=== PATIENT | male | born 1950 | race Caucasian/White ===

== ENCOUNTER 2016-04-29 10:40 | Observation (INO) | payer MEDICARE, OTHER ==
[~2016-04-29] VITALS: Ht 177.8 cm; Wt 79.5 kg
[2016-04-29] VITALS (12 sets, daily range): BP systolic 152–176; BP diastolic 96–102; PULSE 57–71; RESP 18–20; TEMP 97.4–98.4; O2SAT 98–99
[2016-04-29] MEDS ORDERED: ACETYLCYSTEINE 20% ORAL SOLN 4 ML VIAL PO SCH ×2 (12:00→13:00)
[2016-04-29 12:35] LABS: HEMATOCRIT 35.4 % (39.0-51.0); MEAN CELL VOLUME 86.6 FL (80.0-100.0); MEAN CORPUSCULAR HEMOGLOBIN 29.5 PG (27.0-34.0); MEAN CORPUSCULAR HGB CONC 34.1 % (32.0-36.0); PLATELET COUNT 256 TH/MM3 (150-450); RED BLOOD COUNT 4.09 MIL/MM3 (4.50-5.90); RED CELL DISTRIBUTION WIDTH 16.5 % (11.6-17.2); REVIEW FLAG FINAL; WHITE BLOOD COUNT 8.9 TH/MM3 (4.0-11.0)
[2016-04-29 12:43] LABS: INTERNATIONAL NORMALIZED RATIO 1.3 RATIO
[2016-04-29 13:03] LABS: BICARBONATE 22.8 MEQ/L (21.0-32.0); POTASSIUM 4.5 MEQ/L (3.5-5.1)
[2016-04-29] MEDS ORDERED: CHOL1CHW5 PO (13:49)
[2016-04-29] MEDS ORDERED: [UNRECOGNIZED DRUG - OTHER] (13:49)
[2016-04-29] MEDS ORDERED: CITA40TA4 PO (13:49)
[2016-04-29] MEDS ORDERED: CARV25TA PO (13:49)
[2016-04-29] MEDS ORDERED: CLON0.3T PO (13:49)
[2016-04-29] MEDS ORDERED: BUPR150T3 PO (13:49)
[2016-04-29] MEDS ORDERED: ZETI10TA5 PO (13:49)
[2016-04-29] MEDS ORDERED: OMEP20TA PO (13:49)
[2016-04-29] MEDS ORDERED: ATOR1TAB18 PO (13:49)
[2016-04-29] MEDS ORDERED: ISOS60TA PO (13:49)
[2016-04-29] MEDS: ACETYLCYSTEINE 20% 6,000 MG/30 ML ORAL SOLN VIAL PO SCH ×2 (13:58→23:11)
[2016-04-29] MEDS ORDERED: cloNIDine HCL 0.2 MG TAB PO ONE (15:55)
--- NOTE | 2016-04-29 16:23 | HHI.HP ---
History of Present Illness Chief Complaint: Pt admitted for IV hydration prior to surgical intervention History of Present Illness Pt is a pleasant 65/M patient c/o a enlarging AAA after EVAR. The patient has a hx of an endovascular exclusion on the abdominal aortic aneurysm 3-4 years ago. He was lost to follow-up by his own admission with concerns of other health issues, most notably renal failure. He reported his baseline creatinine is in the threes. He was dialyzed once after a small amount of IV contrast during an attempt of an IVC filter removal. The patient denies back pain or abdominal pain. He notes that he had his aneurysm repaired several years ago on an elective basis. (Myriam Kenyon) Past/Family/Social History Past Medical History AAA Cancer- Bladder CKD DM Hyperlipidemia HTN Past Surgical History Back Surgery Coronary Angioplasty with stent placement Social History Current smoker 1/2 pack a day denies ETOH (Myriam Kenyon) Home Medications Reported Medications Cholecalciferol (Vitamin D3)2,000 Unit Chew2,000 Units PO DAILY #1 BOTTLE 04/29/16 [glucoburn] No Conflict Check Bid 04/29/16 Ezetimibe (Zetia)10 Mg Tab10 Mg PO DAILY Ref 0 04/29/16 Omeprazole 20 Mg Tab20 Mg PO BID Ref 0 04/29/16 Isosorbide Mononitrate ER 60 Mg Tab60 Mg PO DAILY Ref 0 04/29/16 Citalopram 40 Mg Tab40 Mg PO DAILY Ref 0 04/29/16 Clonidine 0.3 Mg Tab0.3 Mg PO TID Ref 0 04/29/16 Carvedilol 25 Mg Tab25 Mg PO BID Ref 0 04/29/16 Atorvastatin 80 Mg Tab80 Mg PO HS Ref 0 04/29/16 Bupropion HCl ER 24 HR 150 Mg [id number] Mg PO DAILY Ref 0 04/29/16 Coded Allergies: No Known Allergies (Unverified , 04/29/16) Physical Exam Vitals/I&O Date Time Temp Pulse Resp B/P Pulse Ox O2 Delivery O2 Flow Rate FiO2 04/29/16 15:00 69 04/29/16 15:00 98.4 70 20 176/102 98 04/29/16 14:00 63 04/29/16 13:00 62 04/29/16 12:35 97.4 57 20 173/96 99 04/29/16 12:35 65 Neuro: CN 2-12 intact Heart: +S1,S2 RRR Lungs: Lung sounds clear bilat by auscultation Abdomen: soft and non tender Vascular: Pulses palpable throughout Femoral pulses palpable but diminished All extremities warm with motor intact (Myriam Kenyon) Laboratory Tests Test 04/29/16 04/29/16 12:22 12:25 White Blood Count 8.9 Red Blood Count 4.09 Hemoglobin 12.1 Hematocrit 35.4 Mean Corpuscular Volume 86.6 Mean Corpuscular Hemoglobin 29.5 Mean Corpuscular Hemoglobin 34.1 Concent Red Cell Distribution Width 16.5 Platelet Count 256 Mean Platelet Volume 8.4 Prothrombin Time 15.0 Prothromb Time International 1.3 Ratio Sodium Level 135 Potassium Level 4.5 Chloride Level 103 Carbon Dioxide Level 22.8 Anion Gap 9 Blood Urea Nitrogen 37 Creatinine 3.28 Estimat Glomerular Filtration 19 Rate Random Glucose 152 Calcium Level 8.7 Blood Type B NEGATIVE Antibody Screen NEGATIVE Blood Bank Comment (Myriam Kenyon) Assessment and Plan Assessment: (1) AAA (abdominal aortic aneurysm) Status: Chronic Plan Plan: Pt to have IV hydration prior to surgical vascular intervention tomorrow AM Pt is scheduled to have an EVAR tomorrow am (Myriam Kenyon) Plan Agree with above note. EVAR with enlarging sac but unable to determine endoleak because of CRI. Admitted for hydration and angiogram tomorrow with possible EVAR revision. Pt understands risks, including worsening renal dysfunction. To OR tomorrow. (Kwesi Augustine MD) Problem Qualifiers (1) AAA (abdominal aortic aneurysm): Qualified Code: I71.4 - Abdominal aortic aneurysm (AAA) without rupture Myriam Kenyon Apr 29, 2016 16:23 Kwesi Augustine MD Apr 29, 2016 18:23
[2016-04-29] MEDS: cloNIDine HCL 0.3 MG TAB PO SCH (18:01)
--- NOTE | 2016-04-29 18:25 | PD.VS.PN ---
Pre-operative Note Pre-operative diagnosis: Enlarging AAA after EVAR, CRI Planned procedure: EVAR revision Interval History: Pt has been feeling well since seen in clinic. No abdominal or back pain. Admitted today for IV hydration given eGFR 19. Labs: Laboratory Results Test 04/29/16 12:22 White Blood Count 8.9 TH/MM3 (4.0-11.0) Red Blood Count 4.09 MIL/MM3 (4.50-5.90) Hemoglobin 12.1 GM/DL (13.0-17.0) Hematocrit 35.4 % (39.0-51.0) Mean Corpuscular Volume 86.6 FL (80.0-100.0) Mean Corpuscular Hemoglobin 29.5 PG (27.0-34.0) Mean Corpuscular Hemoglobin 34.1 % Concent (32.0-36.0) Red Cell Distribution Width 16.5 % (11.6-17.2) Platelet Count 256 TH/MM3 (150-450) Mean Platelet Volume 8.4 FL (7.0-11.0) Prothromb Time International 1.3 RATIO Ratio Sodium Level 135 MEQ/L (136-145) Potassium Level 4.5 MEQ/L (3.5-5.1) Chloride Level 103 MEQ/L (98-107) Carbon Dioxide Level 22.8 MEQ/L (21.0-32.0) Anion Gap 9 MEQ/L (5-15) Blood Urea Nitrogen 37 MG/DL (7-18) Random Glucose 152 MG/DL (74-106) Calcium Level 8.7 MG/DL (8.5-10.1) Blood: T&S Imaging: no additional imaging needed Orders: NPO after JENNIFER CARNES (NKDA) Post-operative destination: PACU Operative site marked: No (bilateral groin access - not required) Consent: Informed consent has been obtained from Frank Thompson Jr. I have explained the procedure in detail and discussed the risks, benefits, and potential complications. All questions have been answered. Kwesi Augustine MD Apr 29, 2016 18:25
[2016-04-29] MEDS: CARVEDILOL 12.5 MG TAB PO SCH (21:48)
[2016-04-29] MEDS: PANTOPRAZOLE SOD 20 MG DELAYED RELEASE TAB PO SCH (21:48)
[2016-04-29] MEDS: ATORVASTATIN 80 MG TAB PO SCH (21:48)
[2016-04-30] VITALS (30 sets, daily range): BP systolic 101–187; BP diastolic 56–99; PULSE 56–77; RESP 14–50; TEMP 97.7–99; O2SAT 95–98
[2016-04-30] MEDS ORDERED: SODIUM BICARBONATE 8.4% INJ 100 MEQ in DEXTROSE 5% IN WATE 1000ML INJ 1,000 ML IV SCH ×2 (00:01)
[2016-04-30] MEDS ORDERED: hydrALAZINE HCL 20 MG/ML VIAL IVP PRN (01:30)
[2016-04-30] MEDS: ISOSORBIDE MONONITRATE 60 MG TAB PO SCH (05:16)
[2016-04-30] MEDS ORDERED: MIDAZOLAM HCL 2 MG/2 ML VIAL ONE (06:49)
[2016-04-30] MEDS ORDERED: DEXAMETHASONE SOD PHOS 4 MG/ML VIAL ONE (06:49)
[2016-04-30] MEDS ORDERED: HEPARIN SODIUM - IV 10,000 UNITS/10 ML VIAL ONE (08:07)
[2016-04-30] MEDS ORDERED: ceFAZolin 2 GM PREMIX 50 ML ONE (08:08)
[2016-04-30] MEDS ORDERED: HEPARIN SODIUM - SQ 10,000 UNITS/ML VIAL ONE (08:08)
--- NOTE | 2016-04-30 08:43 | HHI.PR ---
Immediate Post Op Note Procedure Date: Apr 30, 2016 Pre Op Diagnosis: Enlarging AAA after EVAR Post Op Diagnosis: Type II endoleak Surgeon: Kwesi Augustine Healthcare Translator(s): none Procedure: Aortogram w/ B CAN DRYER access IVUS Findings: No Ia or Ib endoleak Possible type II endoleak off iliolumbars Additional Information: R groin closed with Perclose L groin closed with Angioseal Complications: none apparent; Specimen(s) removed: none Estimated blood loss: 10 mL Anesthesia: General Drains: None Fluids: 200mL IVF Patient to: PACU Patient Condition: Good Kwesi Augustine MD Apr 30, 2016 08:43
[2016-04-30] MEDS: HEPARIN SODIUM - SQ 10,000 UNITS/ML VIAL SQ SCH ×3 (09:00→20:52)
[2016-04-30] MEDS ORDERED: DO NOT ADM ANY ANTICOAGULANT DRUGS XX PRN (09:00)
[2016-04-30] MEDS ORDERED: *morphine SULFATE 8 MG/ML PERIprocedure ONLY ONE (09:06)
[2016-04-30] MEDS ORDERED: fentaNYL CITRATE 250 MCG/5 ML AMP ONE (09:14)
--- NOTE | 2016-04-30 09:15 | EKG ---
Date Performed: 04/30/2016 Time Performed: 06:57:00 PTAGE: 65 years EKG: SINUS BRADYCARDIA PROBABLE LATERAL MYOCARDIAL INFARCTION , OF INDETERMINATE AGE INFERIOR MY OCARDIAL INFARCTION , OF INDETERMINATE AGE ABNORMAL ECG NO PREVIOUS TRACING DOCTOR: Chino Nielson Interpretating Date/Time 04/30/2016 09:14:29
[2016-04-30] MEDS ORDERED: *ONDANSETRON 4 MG VIAL PERIprocedural Use ONLY ONE (09:32)
[2016-04-30] MEDS: ACETYLCYSTEINE 20% 6,000 MG/30 ML ORAL SOLN VIAL PO SCH ×2 (10:30→20:51)
[2016-04-30] MEDS: EZETIMIBE 10 MG TAB PO SCH (10:33)
[2016-04-30] MEDS: PANTOPRAZOLE SOD 20 MG DELAYED RELEASE TAB PO SCH ×2 (10:33→20:51)
[2016-04-30] MEDS: CHOLECALCIFEROL (VIT D3) 1000 UNIT TAB PO SCH (10:34)
[2016-04-30] MEDS: buPROPion HCL 150 MG SUSTAINED RELEASE TAB PO SCH (10:34)
[2016-04-30] MEDS: CARVEDILOL 12.5 MG TAB PO SCH ×2 (10:34→20:52)
[2016-04-30] MEDS: cloNIDine HCL 0.3 MG TAB PO SCH ×3 (10:34→18:01)
[2016-04-30] MEDS: CITALOPRAM HYDROBROMIDE 40 MG TAB PO SCH (10:34)
[2016-04-30] MEDS ORDERED: NEOSTIGMINE 3 MG/3 ML SYR IV ONE (12:00)
[2016-04-30] MEDS ORDERED: ePHEDrine/NS 25 MG/5 ML SYR IV ONE (12:00)
[2016-04-30] MEDS ORDERED: SODIUM CHLORID 0.9% 500 ML INJ 500 ML IV ONE (12:00)
[2016-04-30] MEDS ORDERED: IOHEXOL 300 MG/ML 100 ML BTL (for Rad CT) IV ONE (12:00)
[2016-04-30] MEDS ORDERED: NORMOSOL R INJ 1,000 ML IV ONE (12:00)
[2016-04-30] MEDS ORDERED: IOHEXOL 300 MG/ML 50 ML BTL (for RAD DIAG) IV ONE (12:00)
[2016-04-30] MEDS ORDERED: PROPOFOL 200 MG/20 ML AMP IV ONE (12:00)
[2016-04-30] MEDS: SODIUM BICARBONATE 8.4% INJ 100 MEQ in DEXTROSE 5% IN WATE 1000ML INJ 1,000 ML IV SCH ×2 (20:50)
[2016-04-30] MEDS: ATORVASTATIN 80 MG TAB PO SCH (20:52)
[2016-05-01] VITALS (10 sets, daily range): BP systolic 147–149; BP diastolic 88–93; PULSE 64–75; RESP 16–18; TEMP 98–98.5; O2SAT 95–96
[2016-05-01 05:44] LABS: BICARBONATE 23.6 MEQ/L (21.0-32.0); POTASSIUM 4.2 MEQ/L (3.5-5.1)
[2016-05-01] MEDS: ISOSORBIDE MONONITRATE 60 MG TAB PO SCH (06:00)
[2016-05-01] MEDS: PANTOPRAZOLE SOD 20 MG DELAYED RELEASE TAB PO SCH (08:34)
[2016-05-01] MEDS: buPROPion HCL 150 MG SUSTAINED RELEASE TAB PO SCH (08:34)
[2016-05-01] MEDS: CHOLECALCIFEROL (VIT D3) 1000 UNIT TAB PO SCH (08:34)
[2016-05-01] MEDS: cloNIDine HCL 0.3 MG TAB PO SCH (08:34)
[2016-05-01] MEDS: HEPARIN SODIUM - SQ 10,000 UNITS/ML VIAL SQ SCH (08:34)
[2016-05-01] MEDS: CARVEDILOL 12.5 MG TAB PO SCH (08:34)
[2016-05-01] MEDS: CITALOPRAM HYDROBROMIDE 40 MG TAB PO SCH (08:34)
[2016-05-01] MEDS: EZETIMIBE 10 MG TAB PO SCH (08:34)
[2016-05-01] MEDS: SODIUM BICARBONATE 8.4% INJ 100 MEQ in DEXTROSE 5% IN WATE 1000ML INJ 1,000 ML IV SCH ×2 (08:35)
[2016-05-01] MEDS: ACETYLCYSTEINE 20% 6,000 MG/30 ML ORAL SOLN VIAL PO SCH (08:35)
--- NOTE | 2016-05-01 10:05 | PD.VS.PN ---
Subjective POD #: 1 Procedure(s): angiogram, IVUS Subjective/Hospital Course No problems overnight; feels well; groins ok Objective Vitals/I&O Date Time Temp Pulse Resp B/P Pulse Ox O2 Delivery O2 Flow Rate FiO2 05/01/16 10:01 96 21 05/01/16 08:00 64 05/01/16 08:00 98.2 67 16 149/88 96 05/01/16 06:29 65 05/01/16 05:22 75 05/01/16 04:00 66 05/01/16 03:00 98.0 65 18 147/93 95 05/01/16 03:00 66 05/01/16 02:26 65 05/01/16 02:26 98.5 69 18 147/93 96 05/01/16 02:00 66 05/01/16 01:00 68 05/01/16 00:00 74 04/30/16 23:00 72 04/30/16 22:00 68 04/30/16 21:00 68 04/30/16 20:00 70 04/30/16 19:00 98.6 66 16 169/95 96 04/30/16 19:00 70 04/30/16 18:00 64 04/30/16 17:00 72 04/30/16 17:00 67 20 158/91 97 04/30/16 16:00 72 04/30/16 15:00 73 04/30/16 15:00 99.0 68 50 101/74 95 04/30/16 14:30 77 20 102/56 96 04/30/16 14:00 72 04/30/16 13:00 72 04/30/16 12:35 74 04/30/16 12:34 74 04/30/16 12:28 75 16 111/71 97 04/30/16 12:00 74 04/30/16 11:08 98 Nasal Cannula 2.00 04/30/16 11:00 73 05/01/16 05/01/16 05/01/16 07:00 15:00 23:00 Intake Total 1316 ml Output Total 1300 ml Balance 16 ml Exam: no groin ecchymoses Pulses: palpable femoral pulses Laboratory Laboratory Tests Test 05/01/16 04:35 Sodium Level 133 Potassium Level 4.2 Chloride Level 97 Carbon Dioxide Level 23.6 Anion Gap 12 Blood Urea Nitrogen 42 Creatinine 3.45 Estimat Glomerular Filtration 18 Rate Random Glucose 218 Calcium Level 8.7 Assessment and Plan Assessment: (1) AAA (abdominal aortic aneurysm) Status: Chronic Plan Potential type II endoleak but no type Ia or Ib. Creatinine stable. D/C today with f/u 3m with NC CT A/P Pt understands results of imaging yesterday and agrees with plan Discharge Planning today Problem Qualifiers (1) AAA (abdominal aortic aneurysm): Qualified Code: I71.4 - Abdominal aortic aneurysm (AAA) without rupture Kwesi Augustine MD May 01, 2016 10:05
--- NOTE | 2016-05-01 10:10 | PD.VS.DC ---
Discharge Summary Admission Date: Apr 29, 2016 at 11:02 Discharge Date: May 01, 2016 Admission Diagnosis: (1) Enlarging abdominal aortic aneurysm (AAA) Discharge Diagnosis: (1) AAA (abdominal aortic aneurysm) Status: Chronic Brief History from admission Pt is a lane 65/M patient c/o a enlarging AAA after EVAR. The patient has a hx of an endovascular exclusion on the abdominal aortic aneurysm 3-4 years ago. He was lost to follow-up by his own admission with concerns of other health issues, most notably renal failure. He reported his baseline creatinine is in the threes. He was dialyzed once after a small amount of IV contrast during an attempt of an IVC filter removal. The patient denies back pain or abdominal pain. He notes that he had his aneurysm repaired several years ago on an elective basis. Procedure(s): Aortogram w/ B STOCK BUYER access Significant Findings GENERAL: Lane Delarosa/Kindra who is A&OX4 and in NAD, Affect is appropriate to situation SKIN: Warm and dry. Bilat small incisions noted to groin regions intact with surgical glue. NO redness, drainage or swelling CARDIOVASCULAR: RRR GASTROINTESTINAL: Abdomen soft, non-tender, nondistended. MUSCULOSKELETAL: No cyanosis, or edema. Laboratory Tests Test 04/29/16 05/01/16 12:22 04:35 Red Blood Count 4.09 MIL/MM3 (4.50-5.90) Hemoglobin 12.1 GM/DL (13.0-17.0) Hematocrit 35.4 % (39.0-51.0) Prothrombin Time 15.0 SEC (9.8-11.6) Sodium Level 135 MEQ/L 133 MEQ/L (136-145) (136-145) Blood Urea Nitrogen 37 MG/DL (7-18) 42 MG/DL (7-18) Creatinine 3.28 MG/DL 3.45 MG/DL (0.60-1.30) (0.60-1.30) Estimat Glomerular Filtration 19 ML/MIN (>89) 18 ML/MIN (>89) Rate Random Glucose 152 MG/DL 218 MG/DL (74-106) (74-106) Chloride Level 97 MEQ/L (98-107) Hospital Course: Pt was admitted for hydration prior to angiogram the following day Pt has done well and is cleared for d/c'd Will continue to follow patient in our OPC Pt will RTC on 08/01/16 or earlier if any questions or concerns develop Allergies Coded Allergies Type Severity Reaction Last Updated Verified No Known Allergies 04/29/16 No ///// 06:00 18:00 06:00 18:00 06:00 18:00 Intake Total 720 ml 869 ml 2166 ml 1316 ml Output Total 650 ml 1200 ml 380 ml 1300 ml Balance 70 ml -331 ml 1786 ml 16 ml Intake Oral 720 ml 480 ml 520 ml 800 ml IV Total 389 ml 546 ml 516 ml Other 1100 ml Output Urine Total 650 ml 1200 ml 375 ml 1300 ml Estimated Blood Loss 5 ml # Bowel Movements 0 0 0 Laboratory Tests Test 04/29/16 04/29/16 05/01/16 12:22 12:25 04:35 White Blood Count 8.9 TH/MM3 Red Blood Count 4.09 MIL/MM3 Hemoglobin 12.1 GM/DL Hematocrit 35.4 % Mean Corpuscular Volume 86.6 FL Mean Corpuscular Hemoglobin 29.5 PG Mean Corpuscular Hemoglobin 34.1 % Concent Red Cell Distribution Width 16.5 % Platelet Count 256 TH/MM3 Mean Platelet Volume 8.4 FL Prothrombin Time 15.0 SEC Prothromb Time International 1.3 RATIO Ratio Sodium Level 135 MEQ/L 133 MEQ/L Potassium Level 4.5 MEQ/L 4.2 MEQ/L Chloride Level 103 MEQ/L 97 MEQ/L Carbon Dioxide Level 22.8 MEQ/L 23.6 MEQ/L Anion Gap 9 MEQ/L 12 MEQ/L Blood Urea Nitrogen 37 MG/DL 42 MG/DL Creatinine 3.28 MG/DL 3.45 MG/DL Estimat Glomerular Filtration 19 ML/MIN 18 ML/MIN Rate Random Glucose 152 MG/DL 218 MG/DL Calcium Level 8.7 MG/DL 8.7 MG/DL Blood Type B NEGATIVE Antibody Screen NEGATIVE Blood Bank Comment Procedure Category Date Status Time Vital Signs (Adult) NAKITA 04/29/16 Complete 11:42 Activity Oob Ad Linda NAKITA 04/29/16 In Process 11:42 Basic Metabolic Panel LAB 04/29/16 Complete (Bmp) 11:42 Cbc No Diff, Includes LAB 04/29/16 Complete Plts 11:42 Prothrombin Time / LAB 04/29/16 Complete Inr (Pt) 11:46 Type And Screen BBK 04/29/16 Complete 11:46 Acetylcysteine 20% MED 04/29/16 Complete Liq (Mucomyst 20% Liq 12:00 Dextrose 5% In MED 04/30/16 In Process Wate... W/Sodium 00:01 Place In Observation ADMITTING 04/29/16 Transmitted Diet Heart Healthy DIET 04/29/16 Complete Lunch Acetylcysteine 20% MED 04/29/16 In Process Liq (Mucomyst 20% Liq 14:00 Atorvastatin (Lipitor) MED 04/29/16 In Process 21:00 Carvedilol (Coreg) MED 04/29/16 In Process 21:00 Citalopram (Celexa) MED 04/30/16 In Process 09:00 Clonidine (Catapres) MED 04/29/16 In Process 18:00 Ezetimibe (Zetia) MED 04/30/16 In Process 09:00 Isosorbide MED 04/30/16 In Process Mononitrate (Imdur) 07:00 Cholecalciferol MED 04/30/16 In Process (Vitamin D3) 09:00 Pantoprazole MED 04/29/16 In Process (Protonix) 21:00 Bupropion Sr MED 04/30/16 In Process (Wellbutrin Sr) 09:00 Clonidine (Catapres) MED 04/29/16 Complete 15:55 Hydralazine Inj MED 04/30/16 In Process (Apresoline Inj) 01:30 Electrocardiogram CAV 04/30/16 Resulted Midazolam Inj (Versed MED 04/30/16 Complete Inj) 06:49 Dexamethasone Inj MED 04/30/16 Complete (Decadron Inj) 06:49 Heparin Inj (Heparin MED 04/30/16 Complete Inj) 08:07 Cefazolin 2 Gm Premix MED 04/30/16 Complete (Ancef 2 Gm Premix 08:08 Heparin Inj (Heparin MED 04/30/16 Complete Inj) 08:08 Activity Bed Rest NAKITA 04/30/16 In Process 08:44 Diet Heart Healthy DIET 04/30/16 Transmitted Breakfast Resp Oxygen Bridger C RSP 04/30/16 Complete Titrat 1-4 L Vital Signs (Adult) [facility] 04/30/16 Complete 08:44 ^ Notify Dr: Other NAKITA 04/30/16 In Process 08:44 Manager Etl / NAKITA 04/30/16 Complete Telemetry 08:44 Basic Metabolic Panel LAB 05/01/16 Complete (Bmp) 06:00 Heparin Inj (Heparin MED 04/30/16 In Process Inj) 09:00 Dextrose 5% In MED 04/30/16 In Process Wate... W/Sodium 10:00 *Morphine Inj MED 04/30/16 Complete (*Morphine Inj 09:06 Fentanyl Inj MED 04/30/16 Complete (Fentanyl Inj) 09:14 *Ondansetron Inj MED 04/30/16 Complete (*Zofran Inj 09:32 Misc Nursing MED 04/30/16 Complete Information 09:00 ^ Anticoagulant Alert NAKITA 04/30/16 In Process ^ Sling NAKITA 04/30/16 In Process Resp Oxygen Bridger C RSP 04/30/16 Logged Titrat 1-[address] In Observation ADMITTING 04/30/16 Transmitted Class [facility] Complete MIN [facility]16 Complete Post Anesthesia [facility] 04/[facility]16 Complete Attending Discharge DISCHARGE 05/01/16 Transmitted Order Vital Signs Date Time Temp Pulse Resp B/P Pulse Ox O2 Delivery O2 Flow Rate FiO2 05/01/16 08:00 64 05/01/16 08:00 98.2 67 16 149/88 96 05/01/16 06:29 65 05/01/16 05:22 75 05/01/16 04:00 66 05/01/16 03:00 98.0 65 18 147/93 95 05/01/16 03:00 66 05/01/16 02:26 65 05/01/16 02:26 98.5 69 18 147/93 96 05/01/16 02:00 66 05/01/16 01:00 68 05/01/16 00:00 74 04/30/16 23:00 72 04/30/16 22:00 68 04/30/16 21:00 68 04/30/16 20:00 70 04/30/16 19:00 98.6 66 16 169/95 96 04/30/16 19:00 70 04/30/16 18:00 64 04/30/16 17:00 72 04/30/16 17:00 67 20 158/91 97 04/30/16 16:00 72 04/30/16 15:00 73 04/30/16 15:00 99.0 68 50 101/74 95 04/30/16 14:30 77 20 102/56 96 04/30/16 14:00 72 04/30/16 13:00 72 04/30/16 12:35 74 04/30/16 12:34 74 04/30/16 12:28 75 16 111/71 97 04/30/16 12:00 74 04/30/16 11:08 98 Nasal Cannula 2.00 04/30/16 11:00 73 04/30/16 10:00 74 04/30/16 09:55 97.7 67 20 136/78 95 Nasal Cannula 2 04/30/16 09:45 67 20 136/78 95 Nasal Cannula 2 04/30/16 09:30 90 20 148/82 96 Nasal Cannula 2 04/30/16 09:15 69 20 146/82 96 Nasal Cannula 2 04/30/16 09:10 73 20 165/89 96 Nasal Cannula 2 04/30/16 09:05 122 20 193/100 97 Nasal Cannula 2 04/30/16 08:59 98.4 113 20 193/109 98 Nasal Cannula 2 04/30/16 07:00 61 04/30/16 06:00 66 04/30/16 05:54 145/80 04/30/16 05:00 60 04/30/16 04:52 97.7 63 14 187/99 96 04/30/16 03:00 56 04/30/16 02:00 58 04/30/16 01:13 168/92 04/30/16 01:00 170/89 04/30/16 01:00 60 04/30/16 00:40 165/88 04/30/16 00:00 98.0 59 14 167/91 96 04/30/16 00:00 59 04/29/16 23:00 60 04/29/16 22:00 70 04/29/16 21:00 60 04/29/16 21:00 98.1 64 18 152/98 98 04/29/16 20:00 64 04/29/16 19:00 64 04/29/16 18:00 68 04/29/16 17:00 66 04/29/16 16:00 71 04/29/16 15:00 69 04/29/16 15:00 98.4 70 20 176/102 98 04/29/16 14:00 63 04/29/16 13:00 62 04/29/16 12:35 97.4 57 20 173/96 99 04/29/16 12:35 65 Discharge Condition: Good Discharge Disposition: Discharge Home Discharge Instructions: Call the office to report any new onset abdominal pain, fever, chills or any concerns Keep small incisions to both groins clean and dry (open to air) and report any new onset redness drainage or swelling Follow up in our OPC at scheduled appointment time 08/01/16 at 1130 Myriam PEDRAZA [facility] [phone] Any questions or concerns: Call [facility] Heart and Vascular Surgery at [facility] [phone] Myriam Kenyon May 01, 2016 10:10
--- NOTE | 2016-05-01 10:14 | MP ---
cc: KWESI AUGUSTINE MD DATE OF SURGERY: 04/30/2016 PREOPERATIVE DIAGNOSIS: Evolving aneurysm, status post EVAR. POSTOPERATIVE DIAGNOSIS: Potential type II endoleak. PROCEDURE: 1. Aortogram with bilateral common femoral artery catheterization. 2. Intravascular ultrasound of aorta and iliac artery. ATTENDING SURGEON Kwesi Augustine MD WOOL CLASSER SURGEON None. ANESTHESIA General. INDICATIONS Mr. Thompson is a 65-year-old gentleman who had an endovascular abdominal aortic stent graft placed several years ago at an outside institution. He was lost to followup by his own admission and in the interim has developed renal insufficiency with a creatinine of 3.5. A CT scan that I obtained suggested that there was an interval increase in the aneurysm sac and questionable loss of fixation proximally or distally with endograft. The patient is taken to the operating room for angiographic evaluation and potential treatment. I had a long discussion with the patient and his about the risk of contrast and the relatively smaller volume of contrast required to perform an angiogram as apposed to a CT scan, and after weighing the risks and benefits we all agreed to proceed. DESCRIPTION OF PROCEDURE Informed consent was obtained from the patient. He was taken to the operating room and placed supine on the operating table. An appropriate timeout was taken to ensure the patient's identity, operative site and planned procedure. 2 grams of Ancef was administered prior to skin incision and will be discontinued after single preoperative dose. Everyone in the room agreed with the timeout and we proceeded. His groins were prepped and draped and a 21 gauge micropuncture sheath was used to access both the common femoral arteries <<1:49>> micropuncture sheath through which a 0.05 Storq wire was introduced and the micropuncture sheath was exchanged for a 5-Indian sheath on the left. On the right-hand side the micropuncture sheath was exchanged for a 5-Indian sheath and then this was removed and two Perclose ProGlide sutures were inserted and tagged but not tied down. These will be used later. A 8-Indian sheath was introduced. The Storq wire was advanced to the abdominal aorta and a Marker flush catheter was placed over this and aortogram was obtained. The Marker flush catheter was removed and angiographic ultrasound was then obtained by putting the catheter over the wire. Both iliac limbs were interrogated through injections through the sheath with an 8-Indian sheath on the right and a 5-Indian sheath on the left. The 8-Indian sheath was removed and the Perclose were tied down providing hemostasis. There was a good signal in the foot. On the left-hand side of the groin the 5-Indian sheath was removed and angioseal was then placed. Hemostasis was achieved in the groin. The patient was then awoken from anesthesia and taken to the recovery room in stable condition. There were no complications. I was present and scrubbed for the entire procedure. INTERPRETATION OF IMAGES The patient has a patent right renal artery stent and occluded left renal artery stent. The endovascular device is below the left renal artery stent. There is approximately 2.5 cm from the top of the fabric of the endovascular device to the bottom of the remaining right renal artery stent. There is no type IA or IB endoleak. There appears to be a sluggish filling as if from a iliolumbar branch, suggestive of type II endoleak. Both iliac limbs are intact, they both appear to have been stented with self-expanding stents. INTERPRETATION The IVUS images shows that the patient has good apposition of about a centimeter proximally of the aortic stent and good apposition distally as well. MD BLADE Stewart/JASIEL /9:24 AM /9:21 AM
== END 2016-05-01 10:48 | disposition home or self-care (01) ==
LOC: HCIS 11:02 → EDSTATUS 04-30 07:00 → OBSVTOIN 04-30 08:46 → INTOOBSV 04-30 08:46 → HCPC 04-30 10:39 → HCIS 04-30 10:46
PROVIDERS: ADMIT Surgery; ATTEND Surgery
DX: T82.330A Leakage of aortic (bifurcation) graft (replacement), initial encounter (principal); I12.9 Hypertensive chronic kidney disease with stage 1 through stage 4 chronic kidney disease, or unspecified chronic kidney disease; E11.22 Type 2 diabetes mellitus with diabetic chronic kidney disease; N18.9 Chronic kidney disease, unspecified; E78.5 Hyperlipidemia, unspecified; Z95.5 Presence of coronary angioplasty implant and graft; F17.200 Nicotine dependence, unspecified, uncomplicated; Z85.51 Personal history of malignant neoplasm of bladder; T82.898A Other specified complication of vascular prosthetic devices, implants and grafts, initial encounter; Y83.1 Surgical operation with implant of artificial internal device as the cause of abnormal reaction of the patient, or of later complication, without mention of misadventure at the time of the procedure
CPT/HCPCS: 36200; 37252; 75625; 80048; 85027; 85610; 86850; 86900; 86901; 93005; C1753; C1769; G0378; J0360; J0690; J1100; J1644; J2250; J2270; J2405; J2710; J3010; J7040; J7070; Q9967

== ENCOUNTER → 2016-08-15 | Outpatient (CLI) | payer MEDICARE, OTHER ==
[~2016-08-15] MED LIST: AMLO5TAB2 PO; ATOR1TAB18 PO; BUPR150T3 PO; CARV25TA PO; CHOL1CHW5 PO; CITA40TA4 PO; CLON0.3T PO; HUMA100I2 SQ; ISOS60TA PO; LANTINJ SQ; OMEP20TA PO; VITA2000 PO; WARF-20 PO; WARF-60 PO; ZETI10TA5 PO; [UNRECOGNIZED DRUG - OTHER]
[2016-08-15 14:17] LABS: BLOOD, URINE NEG (NEG); COMMENT (UR) CULT NOT INDICATED; CULTURE IF INDICATED CULT NOT INDICATED; GLUCOSE,URINE 150 mg/dL (NEG); KETONE, URINE NEG (NEG); NITRITE,URINE NEG (NEG); URINE COLOR YELLOW (YELLW/STRAW)
[2016-08-15 14:20] LABS: RED BLOOD COUNT 3.79 MIL/MM3 (4.50-5.90)
[2016-08-15 14:21] LABS: APTT (PATIENT) 35.5 SEC (24.3-30.1); AUTOMATED NEUTROPHIL # 5.4 TH/MM3 (1.8-7.7); BASOPHIL % 0.6 % (0.0-2.0); EOSINOPHIL # 0.3 TH/MM3 (0-0.4); EOSINOPHIL % 4.1 % (0.0-4.0); HEMATOCRIT 34.2 % (39.0-51.0); HEMO FLAGS DIFF FINAL; INTERNATIONAL NORMALIZED RATIO 1.5 RATIO; LYMPH % 17.1 % (9.0-44.0); LYMPHOCYTE # 1.4 TH/MM3 (1.0-4.8); MEAN CELL VOLUME 90.2 FL (80.0-100.0); MEAN CORPUSCULAR HEMOGLOBIN 29.5 PG (27.0-34.0); MEAN CORPUSCULAR HGB CONC 32.7 % (32.0-36.0); MONO % 10.1 % (0.0-8.0); NEUT % 68.1 % (16.0-70.0); PLATELET COUNT 249 TH/MM3 (150-450); PROTHROMBIN TIME - PATIENT 16.8 SEC (9.8-11.6); RED CELL DISTRIBUTION WIDTH 16.4 % (11.6-17.2)
[2016-08-15 14:38] LABS: BICARBONATE 22.8 MEQ/L (21.0-32.0); POTASSIUM 5.1 MEQ/L (3.5-5.1)
--- NOTE | 2016-08-15 15:05 | RADRPT ---
EXAM DATE/TIME: 08/15/2016 14:43 [place] COMPARISON: No previous studies available for comparison. INDICATIONS : Pre-op aorta surgery. Evaluate for pneumonia, pneumothorax, and communicable diseases. MEDICAL HISTORY : None. SURGICAL HISTORY : None. ENCOUNTER: Initial ACUITY: 1 day PAIN SCORE: 0/10 LOCATION: Bilateral chest FINDINGS: PA and lateral views of the chest demonstrate the lungs to be symmetrically aerated without evidence of mass, infiltrate or effusion. The cardiomediastinal contours are unremarkable. Osseous structure s are intact. CONCLUSION: No acute cardiopulmonary disease. Louie Peacock MD on August 15, 2016 at 15:03 Board Certified Radiologist. This report was verified electronically.
--- NOTE | 2016-08-16 16:52 | EKG ---
Date Performed: 08/15/2016 Time Performed: 13:41:00 PTAGE: 66 years EKG: Sinus rhythm INFERIOR MYOCARDIAL INFARCTION, OF INDETERMINATE AGE MODERATE T-WAVE ABNORMALITY, CONSIDER LATERAL I SCHEMIA ABNORMAL ECG Compared to the PREVIOUS TRACING from 04/30/16, no significant change DOCTOR: Chris Phelan Interpretating Date/Time 08/16/2016 16:51:41
== END ==
LOC: CPRE 13:15
PROVIDERS: ATTEND Surgery
DX: Z01.810 Encounter for preprocedural cardiovascular examination (principal); Z01.811 Encounter for preprocedural respiratory examination; Z01.812 Encounter for preprocedural laboratory examination; Z79.01 Long term (current) use of anticoagulants; I71.4 Abdominal aortic aneurysm, without rupture; R94.31 Abnormal electrocardiogram [ECG] [EKG]
CPT/HCPCS: 36415; 71020; 80048; 81001; 85025; 85610; 85730; 93005

== ENCOUNTER → 2016-08-19 | Day surgery (SDC) | payer MEDICARE, OTHER ==
[~2016-08-19] MED LIST changes: +CHLORHEXIDINE GLUCONATE 2 % 1 PACK (2 CLOTHS) TOPICAL PRN; -CHOL1CHW5 PO; +DO NOT ADM ANY ANTICOAGULANT DRUGS PRN; +HEPARIN SODIUM - IV 10,000 UNITS/10 ML VIAL ONE; +INSULIN HUMAN REGULAR 1,000 UNITS/10 ML VIAL SQ PRN; +IOHEXOL 350 MG/ML 100 ML BTL (for Cath Lab) OTHER ONE; +LACTATED RINGER'S 1000 ML IV PRN; +METOPROLOL TARTRATE 25 MG TAB PO PRN; +MIDAZOLAM HCL 2 MG/2 ML VIAL ONE; +NEOSTIGMINE 3 MG/3 ML SYR IV ONE; +ONDANSETRON HCL 4 MG/2 ML VIAL IV PUSH ONE; +POVIDONE IODINE 5% (ANTISEPSIS KIT) 4 APPLICATIONS EACH NARE PRN; +PROPOFOL 200 MG/20 ML AMP IV ONE; +SODIUM CHLORID 0.9% 500 ML IV PRN; -ZETI10TA5 PO; -[UNRECOGNIZED DRUG - OTHER]; +ceFAZolin 2 GM PREMIX 50 ML ONE; +ePHEDrine/NS 25 MG/5 ML SYR IV ONE; +fentaNYL CITRATE 250 MCG/5 ML AMP ONE
[2016-08-19 06:37] VITALS: BP 103/67; PULSE 64; RESP 18; TEMP 96.9; O2SAT 97
--- NOTE | 2016-08-19 07:10 | HHI.HP ---
History of Present Illness Chief Complaint: enlarging AAA after EVAR History of Present Illness 66 yo male with history of EVAR with B renal stents years ago, then lost to f/u from outside institution. Re-presented with enlarging AAA sac and presumed type II endoleak. Had diagnostic angiogram and attempted trans-caval embolization without ability to penetrate aortic sac. Presents today for re- attempt at embolization. Pt has not been able to undergo contrasted CT scan because of stage V CRI with creatinine >4. No abdominal or back pain. Past/Family/Social History Past Medical History bladder CA CKD DM HTN CAD AAA Past Surgical History EVAR Social History non smoker Family History no AAA Home Medications Reported Medications Insulin Glargine Inj (Lantus Solostar Pen Inj)300 Unit/3 Ml Pen14 Units SQ HS Ref 0 08/15/16 Cholecalciferol (Vitamin D3)2,000 Unit Cap2,000 Units PO DAILY #1 BOTTLE Ref 0 08/15/16 Warfarin 6 Mg Tab6 Mg PO MO,WE,TH,SA,SANCHEZ #30 TAB Ref 0 08/15/16 Warfarin 4 Mg Tab4 Mg PO FR,TU #30 TAB Ref 0 08/15/16 Amlodipine 5 Mg Tab5 Mg PO BID #30 TAB Ref 0 08/15/16 Omeprazole 20 Mg Tab20 Mg PO BID Ref 0 04/29/16 Isosorbide Mononitrate ER 60 Mg Tab60 Mg PO DAILY Ref 0 04/29/16 Citalopram 40 Mg Tab40 Mg PO DAILY Ref 0 04/29/16 Clonidine 0.3 Mg Tab0.3 Mg PO TID Ref 0 04/29/16 Carvedilol 25 Mg Tab25 Mg PO BID Ref 0 04/29/16 Atorvastatin 80 Mg Tab80 Mg PO HS Ref 0 04/29/16 Bupropion HCl ER 24 HR 150 Mg Syz943 Mg PO DAILY Ref 0 04/29/16 Discontinued Reported Medications [glucoburn] No Conflict Check Bid 04/29/16 Ezetimibe (Zetia)10 Mg Tab10 Mg PO DAILY Ref 0 04/29/16 Coded Allergies: No Known Allergies (Unverified , 08/15/16) Review of Systems Constitutional: COMPLAINS OF: Fatigue, DENIES: Fever, Weight loss, Chills Respiratory: DENIES: Cough, Shortness of breath Cardiovascular: DENIES: Chest pain Gastrointestinal: COMPLAINS OF: Anorexia, DENIES: Abdominal pain, Nausea, Vomiting Psychiatric: COMPLAINS OF: Anxiety Physical Exam Neuro: no distress, neuro intact HEENT: NC/AT; anicteric sclera Neck: no JVD Heart: reg rate, no murmurs or rubs appreciated Lungs: clear bilaterally Abdomen: soft, NT Extremities: SALCIDO without deficit Hct 34 plt 249 INR 1.[address] reviewed prior angio reviewed Assessment and Plan Plan likely type II endoleak will attempt embolization via hypogastric artery I explained to patient and again this morning about the risks, including worsening renal failure (although I think he will assuredly be on HD shortly regardless) and failure of embolization, potential need for EVAR open surgical conversion in the near future. They are going to contact his embalmer/funeral director for earlier appt than scheduled for next month. Anticipate d/c later today or adm for overnight obs. : [phone] Kwesi Augustine MD Aug 19, 2016 07:09
[2016-08-19 07:55] LABS: PROTHROMBIN TIME - PATIENT 10.9 SEC (9.8-11.6)
[2016-08-19 08:02] VITALS: PULSE 64
--- NOTE | 2016-08-19 09:51 | HHI.PR ---
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
[2016-08-19 12:03] VITALS: BP 183/98; PULSE 67; RESP 20; TEMP 96.9; O2SAT 98
--- NOTE | 2016-08-20 07:44 | MP ---
cc: KWESI LIZARRAGA MD DATE OF SURGERY 08/19/2016 INDICATIONS FOR PROCEDURE Mr. Thompson is a 66-year-old gentleman with history of an aneurysm that was repaired endovascularly at an outside institution several years ago. He presented with an endoleak and enlarging aneurysm sac. It is presumed to be a Type II as the prior angiogram showed no Type I-A or I-B or III endoleak. However, because of the patient's Stage V renal insufficiency, a good CT scan has not been able to be accomplished. DESCRIPTION OF PROCEDURE Informed consent was obtained from the patient. He was taken to the operating room, placed supine on the operating room table. Appropriate time-out was taken to ensure the correct patient, operative site and planned procedure. 2 grams of Ancef were initiated prior to the skin incision, will be discontinued after a single preoperative dose. Everyone in the room agreed with the time-out and we proceeded. His left common femoral artery was accessed with a 21-gauge micropuncture needle. This was exchanged using Seldinger technique to a micropuncture sheath through which a 0.05 Glidewire was introduced. The micropuncture sheath was exchanged for a 6-Faroese sheath and a Berenstein catheter and then subsequently a TC and RIM catheter and ultimately a SOS selective catheter were used to cannulate the left hypogastric artery, subsequently was navigated with a wire and then a micro-catheter up into the aneurysm sac but these were ultimately unsuccessful. The wire, catheter and sheath were removed and the groin was closed with AngioSeal. There were no complications. I was present and scrubbed for the entire procedure. At the conclusion of the case the patient had a palpable femoral pulse, was awoken from anesthesia and taken to the recovery room in stable condition. INTERPRETATION OF IMAGES The patient has a patent hypogastric artery and it is difficult to appreciate any filling of the aortic sac. Kwesi Lizarraga MD RJF/SSB /5:08 PM /7:29 AM
== END | disposition home or self-care (01) ==
LOC: HSDC 06:31
PROVIDERS: ATTEND Surgery
DX: I71.4 Abdominal aortic aneurysm, without rupture (principal); I25.10 Atherosclerotic heart disease of native coronary artery without angina pectoris; I12.9 Hypertensive chronic kidney disease with stage 1 through stage 4 chronic kidney disease, or unspecified chronic kidney disease; E11.22 Type 2 diabetes mellitus with diabetic chronic kidney disease; N18.9 Chronic kidney disease, unspecified; Z85.51 Personal history of malignant neoplasm of bladder; Z79.899 Other long term (current) drug therapy; Z79.01 Long term (current) use of anticoagulants; Z79.4 Long term (current) use of insulin
CPT/HCPCS: 36415; 75630; 82948; 85610; 86850; 86900; 86901; 86920; C1725; C1769; J0690; J1644; J2250; J2405; J2710; J3010; J7120; Q9967